=== PATIENT | male | born 1975 | race Caucasian/White ===

== ENCOUNTER → 2021-08-02 | Outpatient (CLI) | payer OTHER ==
[2021-08-02] MEDS: IOHEXOL 350 MG/ML 100 ML VIAL. IV ONE (09:39)
--- NOTE | 2021-08-02 09:47 | RAD ---
Examination: CT angiography chest with IV contrast HISTORY: History of dyspnea COMPARISON: None available TECHNIQUE: Axial CT angiographic images of chest were performed with IV contrast. Coronal and sagitta l 3-D MIP reformats are performed. Exposure: One or more of the following individualized dose reduction techniques were utilized for thi s examination: 1. Automated exposure control 2. Adjustment of the mA and/or kV according to patient size 3. Use of iterative reconstruction technique FINDINGS: The visualized thyroid gland grossly appears unremarkable. Central airways are patent. The ascending aorta measures 2.6 cm in transverse dimension. No evidence for significant mediastinal lymphadenopath y.There is no evidence of filling defect identified in the main pulmonary artery and right and left m ain pulmonary arteries and the visualized lobar, segmental branches of the pulmonary arteries. The carol ann ngs are clear. The liver, spleen, adrenals grossly appears unremarkable No evidence of lytic bony destructive lesion. IMPRESSION: 1. No evidence of pulmonary embolism. 2. The lungs are clear. Electronically signed by: Kashif Nguyen MD (08/02/2021 9:45 AM) [id number]
== END ==
LOC: CT 08:43
PROVIDERS: ATTEND Internal Medicine Critical Care Medicine
DX: R06.00 Dyspnea, unspecified (principal)
CPT/HCPCS: 71275; Q9967